=== PATIENT | male | born 1960 | race Two or more races ===

== ENCOUNTER 2016-07-10 08:15 | Day surgery (SDC) | END 2016-07-10 18:30 | disposition home or self-care (01) | DX: I25.10 Atherosclerotic heart disease of native coronary artery without angina pectoris (principal) | CPT/HCPCS: 80048; 85025; 85610; 85730; 93005; 93454; C1769; C1887; J0360; J1644; J2250; J3010; Q9967 ==

== ENCOUNTER 2017-09-14 01:31 | Emergency (ER) | END 2017-09-14 04:42 | disposition home or self-care (01) ==